=== PATIENT | female | born 1995 | race Caucasian/White ===

== ENCOUNTER 2022-06-25 19:47 | Emergency (ER) | payer MEDICAID ==
[2022-06-25] MEDS ORDERED: Ketorolac 30 MG/ML SDV IM STA (21:08)
[2022-06-25] MEDS ORDERED: Lidocaine 2% Viscous Solution 15 ML UD PO STA (21:15)
[2022-06-25] MEDS ORDERED: Benzocaine 20% Topical Spray UD MUCMEM ONE (21:15)
== END 2022-06-25 22:17 | disposition home or self-care (01) ==
LOC: MW.ED 19:47
DX: K08.89 Other specified disorders of teeth and supporting structures (principal); I10 Essential (primary) hypertension; J45.909 Unspecified asthma, uncomplicated; E11.9 Type 2 diabetes mellitus without complications; Z79.84 Long term (current) use of oral hypoglycemic drugs; Z79.899 Other long term (current) drug therapy
CPT/HCPCS: 96372; 99282; A9270; J1885

== ENCOUNTER 2022-07-13 16:20 | Emergency (ER) | payer MEDICAID ==
[2022-07-13] MEDS ORDERED: LORazepam 1 MG Tab PO STA (16:58)
[2022-07-13 17:44] LABS: CARBON DIOXIDE,CO2 25.5 mmol/L (21.0-32.0); POTASSIUM,K 4.2 mmol/L (3.5-5.1)
[2022-07-13 19:21] LABS: HEMOGLOBIN A1C 10.4 %
== END 2022-07-13 19:21 | disposition home or self-care (01) ==
LOC: MW.ED 16:20
DX: K76.89 Other specified diseases of liver (principal); I10 Essential (primary) hypertension; E11.65 Type 2 diabetes mellitus with hyperglycemia; E03.9 Hypothyroidism, unspecified; J45.909 Unspecified asthma, uncomplicated; Z79.84 Long term (current) use of oral hypoglycemic drugs; Z79.899 Other long term (current) drug therapy
CPT/HCPCS: 36415; 76705; 80053; 81001; 81025; 83036; 83690; 85025; 93005; 99284; A9270; 93010

== ENCOUNTER 2022-08-02 00:40 | Emergency (ER) | payer MEDICAID ==
[2022-08-02] MEDS ORDERED: Cephalexin 500 MG Cap PO ONE (00:57)
[2022-08-02] MEDS ORDERED: Sulfamethoxazole/Trimethoprim 800-160 MG Tab PO ONE (00:57)
[2022-08-02] MEDS ORDERED: Bacitracin Oint 1 GM U/D Packet TOP ONE (00:57)
== END 2022-08-02 01:15 | disposition home or self-care (01) ==
LOC: MW.ED 00:40
DX: N61.0 Mastitis without abscess (principal); I10 Essential (primary) hypertension; E11.9 Type 2 diabetes mellitus without complications; Z79.899 Other long term (current) drug therapy; Z79.84 Long term (current) use of oral hypoglycemic drugs
CPT/HCPCS: 99283; A9270

== ENCOUNTER 2022-08-02 22:32 | Emergency (ER) | payer MEDICAID ==
[2022-08-02] MEDS ORDERED: Sodium Chloride 0.9% 2.5 ML Syringe FLUSH PRN (23:00)
[2022-08-02] MEDS ORDERED: Prochlorperazine 10 MG/2 ML SDV IVPUSH ONE (23:00)
[2022-08-02] MEDS ORDERED: Sodium Chloride 0.9% 10 ML Syringe FLUSH PRN (23:00)
[2022-08-02] MEDS ORDERED: Sodium Chloride 0.9% 1,000 ML IV ONE (23:04)
[2022-08-02] MEDS ORDERED: Iopamidol 755 MG/ML 500 ML Multipack Bottle IVPUSH ONE (23:43)
[2022-08-02 23:53] LABS: CARBON DIOXIDE,CO2 25.8 mmol/L (21.0-32.0); POTASSIUM,K 4.1 mmol/L (3.5-5.1)
== END 2022-08-03 00:11 | disposition left against medical advice (07) ==
LOC: MW.ED 22:32
DX: K29.70 Gastritis, unspecified, without bleeding (principal); I10 Essential (primary) hypertension; J45.909 Unspecified asthma, uncomplicated; E11.9 Type 2 diabetes mellitus without complications; Z79.84 Long term (current) use of oral hypoglycemic drugs; Z79.899 Other long term (current) drug therapy; Z91.013 Allergy to seafood
CPT/HCPCS: 36415; 80053; 83690; 84703; 85025; 96374; 99284; J0780; J3490; J7030; 99283